=== PATIENT | male | born 1965 | race Caucasian/White ===

== ENCOUNTER 2017-02-03 15:17 | Emergency (ER) | payer OTHER ==
--- NOTE | 2017-02-03 15:37 | PROVIDER DOCUMENTATION ---
HPI-Respiratory General - General Stated Complaint: PNEUMONIA SX WORSENING Time Seen by Provider: 02/03/17 15:33 Source: patient Allergies/Adverse Reactions: Patient Allergies Allergy/AdvReac Type Severity Reaction Status Date / Time No Known Allergies Allergy Verified 05/01/16 15:03 Home Medications: Home Medication List Medication Instructions Recorded Confirmed Last Taken Type Esomeprazole [Nexium] 40 mg PO PRN PRN 05/01/16 05/02/16 04/17/16 History Fexofenadine [Vianey] 180 mg PO PRN PRN 05/01/16 05/02/16 04/17/16 History Hydrocodone/APAP 10 mg/325 mg 1 each PO Q6H PRN PRN #15 tablet 05/02/16 Unknown Rx [Shafter-10] Hydrocodone/Acetaminophen [Shafter 1 each PO PRN PRN 05/02/16 05/02/16 05/01/16 20 :00 History 7.5-325 Tablet] Promethazine [Phenergan] 25 mg PO Q6H PRN PRN #5 tablet 05/02/16 Unknown Rx - History of Present Illness-Resp Nature of Presenting Problem: pt is a 51 y/o M that presents to the Er with cough congestion wheezing and shortness of breath. patient was seen 5 days ago at a walk-in clinic and dx with microplasm pneumonia, given antibiotics and steroids. patient feels like he hasn't got better. denies fever Severity in ED: reports: mild, moderate Onset/Duration: reports: gradual, 5 days ago Timing: reports: still present, constant Context: reports: multiple patients with similar complaints, recent URI Cough Quality/Degree: reports: moderate, productive cough Current Respiratory Medication Therapy: Initiated see nurses note Modifying Factors: worse with: coughing Associated Symptoms: reports: cough, shortness of breath, short of breath, wheezing. denies: fever/chills, flu-like symptoms, nasal congestion, nasal drainage Similar Symptoms Previously?: Yes Recently seen or treated by another doctor?: Yes Review of Systems - Adult - REVIEW OF SYSTEMS - ADULT Constitutional: denies: chills, fever Eyes: reports: no symptoms reported Ears, Nose, Mouth & Throat: reports: no symptoms reported Cardiovascular: denies: chest pain, palpitations, syncope Respiratory: reports: cough, shortness of breath, wheezing Gastrointestinal: denies: abdominal pain, diarrhea, nausea, vomiting Genitourinary: reports: no symptoms reported Musculoskeletal: reports: no symptoms reported Integumentary: reports: no symptoms reported Neurological: reports: no symptoms reported Psychiatric: reports: no symptoms reported Endocrine: reports: no symptoms reported Hematologic/Lymphatic: reports: no symptoms reported Allergic/Immunologic: reports: no symptoms reported All Other Systems: Reviewed and Negative Past History - Adult - PAST MEDICAL HISTORY-ADULT Review of Records: reports: Old Records Reviewed, Nursing Assessment Review, Medications Reviewed Cardiovascular: reports: HTN Gastrointestinal: reports: GERD - IMMUNIZATION STATUS Childhood Immunizations: See Nurse Assessment Flu Vaccine: See Nurse Assessment - FAMILY HISTORY Family History: reviewed, not pertinent - SOCIAL HISTORY Smoking: non-smoker Living Situation: family Physical Exam-General - PHYSICAL EXAM-ADULT Initial Vital Signs Reviewed: Yes - CONSTITUTIONAL General Appearance: alert, no apparent distress - EYES Eyes: PERRL/EOMI, pink conjunctivae - HEAD, EARS, NOSE, MOUTH & THROAT HENMT: normocephalic/atraumatic, moist mucous membranes, TMs normal, other ( hoarseness, post nasal drip) - NECK Neck: non-tender, full range of motion, normal inspection - RESPIRATORY Respiratory: no respiratory distress, no accessory muscle use, rhonchi ( bilateral), wheezing (LLL Mild) - CARDIOVASCULAR Cardiovascular: no gallop, no murmur, tachycardia - GASTROINTESTINAL (ABDOMEN) Abdominal Exam: normal bowel sounds, non tender, soft, no organomegaly, no pulsatile mass - MUSCULOSKELETAL Extremity: normal range of motion, normal inspection - SKIN Integumentary: normal color, warm/dry - NEUROLOGIC Neurologic: grossly normal, no motor/sensory deficits - PSYCHIATRIC Psych/Mental Status: normal mood/affect, normal thought content, normal thought process, oriented x 3 Progress - PLAN OF CARE/RESULTS Progress/Plan/Lab Results: Vital Signs Temp Pulse Resp BP Pulse Ox 02/03/17 15:21 98.5 F 111 H 18 178/106 97 No Known Allergies Allergy (Verified 05/01/16 15:03) Esomeprazole [Nexium] 40 mg PO PRN PRN 05/01/16 Fexofenadine [Vianey] 180 mg PO PRN PRN 05/01/16 Hydrocodone/APAP 10 mg/325 mg [Shafter-10] 1 each PO Q6H PRN PRN #15 tablet Hydrocodone/Acetaminophen [Shafter 7.5-325 Tablet] 1 each PO PRN PRN 05/02/16 Promethazine [Phenergan] 25 mg PO Q6H PRN PRN #5 tablet 05/02/16 Laboratory 02/03/17 02/03/17 02/03/17 15:58 15:58 15:58 WBC 9.86 RBC 5.40 Hgb 15.8 Hct 46.6 MCV 86.3 MCH 29.3 MCHC 33.9 RDW Std Deviation 13.9 Plt Count 271 MPV 9.6 Immature Gran % (Auto) 0.2 Neut % (Auto) 72.0 Lymph % (Auto) 19.6 L [place] % (Auto) 7.6 Eos % (Auto) 0.5 Baso % (Auto) 0.1 Immature Gran # (Auto) 0.02 Neut # (Auto) 7.10 H Lymph # (Auto) 1.93 [place] # (Auto) 0.75 H Eos # (Auto) 0.05 Baso # (Auto) 0.01 Sodium 133 L Potassium 3.8 Chloride 95 L Carbon Dioxide 23 L Anion Gap 15 BUN 13 Creatinine 0.9 Estimated GFR/1.73 m2 > 60 BUN/Creatinine Ratio 14 Glucose 127 H Calculated Osmolality 268 Calcium 8.8 Total Bilirubin 0.29 AST 21 ALT 41 Alkaline Phosphatase 61 Ehs-Z-Ihgygrerogk Pept 39 Total Protein 7.1 Albumin 3.6 Globulin 3.5 Albumin/Globulin Ratio 1.0 Orders Category Date Time Status CHEST-2 VIEWS [RAD] Stat Exams 02/03/17 15:24 Draft BLOOD CULTURE [BLDCUL] Stat Lab 02/03/17 15:24 Uncollected CBC WITH DIFF [HEME] Stat Lab 02/03/17 15:58 Completed COMPREHENSIVE METABOLIC PANEL [CHEM] Stat Lab 02/03/17 15:58 Completed PRO B-NATRIURETIC PEPTIDE Stat Lab 02/03/17 15:58 Completed Pulse Oximetry Stat Oth 02/03/17 15:24 Active pt will be d/c home f/u with pcp, rx given, pt was clinically stable, pt understood instructions and results - XRAY 1 XRAY Study: Chest Impression: Abnormal XRAY Interpretation: borderline cmg, atelectasis right mid lung, nad Departure - Departure Time of Disposition Order: 16:58 DIAGNOSIS: Cough in adult patient, Shortness of breath, History of pneumonia Disposition: HOME 01 Certified Medical Emergency: Emergent Condition: Stable Additional Instructions: continue your medications f/u with your doctor in the next few days monitor bp and notified family doc if elevated ED Follow Up Instructions: You have been treated by a care provider in the Emergency Department. These instructions are being provided to you so you can have an understanding of how to care for yourself upon discharge. Upon discharge from the Emergency Department, you are responsible for making arrangements for follow-up care by a physician of your choice. Take all prescribed medications as directed. Return to the Emergency Department immediately for any new or worsening symptoms. You may call the Physician Referral phone number at [phone] to obtain a list of Physicians who are taking new patients. Instructions: Cough, Adult, [id number] Attestation - Scribe Verification/Attestation Scribe:: Russ Shea Acting as Scribe for:: Lenny Hong Scribe documention review:: This chart was documented by a scribe and accurately reflects the service the provider performed and the decisions made by the provider. Physician Attestation - Physician Attestation I, the provider, attest to the following statement:: Lenny Hong Physician documentation Attestation:: This documentation recorded by the scribe accurately reflects the service I personally performed and the decisions made by me.
[2017-02-03 16:05] LABS: MANUAL DIFF NEEDED? NO
[2017-02-03 16:13] LABS: BASO% 0.1 % (0.0-0.8); EOS# 0.05 X1000 (0.0-0.7); EOS% 0.5 % (0.0-10.0); HEMATOCRIT 46.6 % (42.0-52.0); HEMOGLOBIN 15.8 g/dL (14.0-18.0); IMM GRAN# 0.02 X1000 (0.0-0.04); IMM GRAN% 0.2 % (0.0-0.5); LYMPH# 1.93 X1000 (1.2-3.4); LYMPH% 19.6 % (20.5-51.1); MCH 29.3 PG (27-31); MCHC 33.9 g/dL (33-37); MCV 86.3 FL (81-99); MONO# 0.75 X1000 (0.11-0.59); MONO% 7.6 % (1.7-9.3); MPV 9.6 FL (7.4-10.4); PLT 271 X1000 (130-400)
--- NOTE | 2017-02-03 16:17 | Diag Imaging Result Document ---
PROCEDURE NAME: CHEST-2 VIEWS - 02/03/2017 CHEST X-RAY 2 VIEWS: COMPARISON: 04/14/2016. FINDINGS: There is some linear atelectasis in the right mid lung similar to prior. Stable borderline cardiomegaly. Otherwise, no focal infiltrates. IMPRESSION: No specific acute disease.
[2017-02-03 16:40] LABS: AGAP 15; ALBUMIN 3.6 g/dL (3.5-5.0); ALKALINE PHOSPHATASE 61 U/L (32-122); BUN 13 mg/dL (8-22); CALCIUM 8.8 mg/dL (8.8-10.2); CHLORIDE 95 mmol/L (98-107); COSMO 268; GOT 21 U/L (10-34); GPT 41 U/L (10-44); POTASSIUM 3.8 mmol/L (3.5-5.1); SODIUM 133 mmol/L (136-145); TCO2 23 mmol/L (25-35); TOTAL BILIRUBIN 0.29 mg/dL (0.20-1.00); TOTAL PROTEIN 7.1 g/dL (6.3-8.3)
[2017-02-03] MEDS ORDERED: DECADRON IM ONE (16:54)
[2017-02-03] MEDS ORDERED: DUONEB (A & A) INH ONE (16:54)
[2017-02-03 19:12] VITALS: BP 136/92
== END 2017-02-03 19:11 | disposition home or self-care (01) ==
LOC: ED 15:17
DX: R05 Cough (principal); R06.02 Shortness of breath; Z87.09 Personal history of other diseases of the respiratory system; R06.2 Wheezing; I10 Essential (primary) hypertension; K21.9 Gastro-esophageal reflux disease without esophagitis; R49.0 Dysphonia; R09.82 Postnasal drip; R00.0 Tachycardia, unspecified
CPT/HCPCS: 71020; 80053; 83880; 85025; 87040; 94640; 94761